=== PATIENT | male | born 1975 | race Caucasian/White ===

== ENCOUNTER → 2016-06-20 | Outpatient (CLI) | payer BC ==
--- NOTE | 2016-06-20 11:17 | ECHOF ---
Referral Reason:R7.89 chest pain MEASUREMENTS -------- HEIGHT: 157.5 cm WEIGHT: 958.9 kg BP: RVIDd: 2.8 cm (< 3.3) IVSd: 1.0 cm (0.6 - 1.1) LVIDd: 5.7 cm (3.9 - 5.3) LVPWd: 1.1 cm (0.6 - 1.1) IVSs: 1.6 cm LVIDs: 3.7 cm LVPWs: 1.5 cm LA Diam: 3.3 cm (2.7 - 3.8) Ao Diam: 3.4 cm (2.0 - 3.7) AV Cusp: 2.2 cm (1.5 - 2.6) LA Diam: 3.5 cm (2.7 - 3.8) MV EXCURSION: 23.948 mm (> 18.000) MV EF SLOPE: 138 mm/s (70 - 150) EPSS: 0.3 cm MV E Jalen: 0.52 m/s MV DecT: 256 ms MV A Jalen: 0.52 m/s MV E/A Ratio: 1.00 RAP: 5.00 mmHg RVSP: 19.13 mmHg FINDINGS -------- Sinus rhythm. This was a technically good study. There is borderline concentric left ventricular hypertrophy. Overall left ventricular systolic function is normal with, an EF between 55 - 60 %. The right ventricle is normal in size. The left atrial size is normal. The right atrial size is normal. There is mild aortic valve sclerosis. There is no evidence of aortic regurgitation. Mild mitral annular calcification present. Mild mitral regurgitation is present. Trace tricuspid regurgitation present. There is no evidence of pulmonary hypertension. The right ventricular systolic pressure, as measured by Doppler, is 19.13mmHg. There is no pulmonic regurgitation present. The aortic root size is normal. There is no pericardial effusion. CONCLUSIONS -------- 1. There is borderline concentric left ventricular hypertrophy. 2. Overall left ventricular systolic function is normal with, an EF between 55 - 60 %. 3. There is mild aortic valve sclerosis. 4. Mild mitral annular calcification present. 5. Mild mitral regurgitation is present. 6. Trace tricuspid regurgitation present. 7. There is no evidence of pulmonary hypertension. 8. The right ventricular systolic pressure, as measured by Doppler, is 19.13mmHg. HOME CARE GIVER: Erica Talamantes RDCS
== END | disposition home or self-care (01) ==
LOC: RADECHMAIN 08:30
PROVIDERS: ATTEND Family Medicine
DX: I35.8 Other nonrheumatic aortic valve disorders (principal); I34.0 Nonrheumatic mitral (valve) insufficiency
CPT/HCPCS: 93306

== ENCOUNTER 2016-11-13 08:38 | Emergency (ER) | payer BC, OTHER ==
[2016-11-13] MEDS ORDERED: SODIUM CHLORIDE 0.9% 1,000 ML IV STA (09:00)
--- NOTE | 2016-11-13 09:01 | ED ---
General Adult HPI - General Chief complaint: Abdominal Pain Stated complaint: Abd Pain Time Seen by Provider: 11/13/16 08:54 Source: patient, RN notes reviewed Mode of arrival: ambulatory Limitations: no limitations - History of Present Illness Initial comments: Patient will be 1-year-old male who presents emergency room today with a chief complaint of right-sided flank pain on and off over the last month. He does admit that he's noticed it more when he walks up steps was on his right leg that he feels this pain. States he was worried about his appendix. States his pain seems to be more often over the last 3 days. He states that he was at work this morning broke out into a sweat. He denies any other complaints or associated symptoms. Patient denies any recent fever, chills, shortness of breath, chest pain, nausea or vomiting, numbness or tingling, dysuria or hematuria, constipation or diarrhea, headaches or visual changes, or any other complaints. - Related Data Home Medications Medication Instructions Recorded Confirmed HYDROcodone/APAP 10-325MG [[place] 1 tab PO TID 12/24/15 11/13/16 10-325] Allergies Allergy/AdvReac Type Severity Reaction Status Date / Time No Known Allergies Allergy Verified 11/13/16 09:21 Review of Systems ROS Statement: Those systems with pertinent positive or pertinent negative responses have been documented in the HPI. ROS Other: All systems not noted in ROS Statement are negative. Past Medical History Additional Past Medical History / Comment(s): back pain History of Any Multi-Drug Resistant Organisms: None Reported Past Surgical History: Back Surgery Past Psychological History: No Psychological Hx Reported Smoking Status: Current every day smoker Past Alcohol Use History: Occasional Past Drug Use History: None Reported General Exam - General Exam Comments Initial Comments: General: The patient is awake and alert, in no distress, and does not appear acutely ill. Eye: Pupils are equal, round and reactive to light, extra-ocular movements are intact. No nystagmus. There is normal conjunctiva bilaterally. No signs of icterus. Ears, nose, mouth and throat: There are moist mucous membranes and no oral lesions. Neck: The neck is supple, there is no tenderness or JVD. Cardiovascular: There is a regular rate and rhythm. No murmur, rub or gallop is appreciated. Respiratory: Lungs are clear to auscultation, respirations are non-labored, breath sounds are equal. No wheezes, stridor, rales, or rhonchi. Gastrointestinal: Soft, non-distended, non-tender abdomen without masses or organomegaly noted. There is no rebound or guarding present. No CVA tenderness. Bowel sounds are unremarkable. Musculoskeletal: Normal ROM, no tenderness. Strength 5/5. Sensation intact. Pulses equal bilaterally 2+. Neurological: A&O x 3. CN II-XII intact, There are no obvious motor or sensory deficits. Coordination appears grossly intact. Speech is normal. Skin: Skin is warm and dry and no rashes or lesions are noted. Psychiatric: Cooperative, appropriate mood & affect, normal judgment. Limitations: no limitations Course Vital Signs 11/13/16 08:50 Temperature 98.0 F Pulse Rate 76 Respiratory 18 Rate Blood Pressure 155/78 O2 Sat by Pulse 98 Oximetry Medical Decision Making - Medical Decision Making Patient reexamined at this time shows no signs of distress. Resting comfortably in the stretcher. His abdomen is soft nontender. His labs been reviewed. His lipase 312. Remaining labs are within normal limits. Patient does have an appointment with his family doctor today in less than an hour. He does admit that it was worse when he was going downstairs also admits that today he has a physical job was going down a ladder when the pain seemed to get worse. Was discussed with patient about possibility of this being muscular skeletal. His x-rays unremarkable. He'll be discharged home advised follow-up the family doctor for this appointment later today to advised return here to the emergency room symptoms increase or worsen or for new concerns. Patient states understanding and is in agreement with the plan. - Lab Data Result diagrams: 11/13/16 09:15 11/13/16 09:15 Lab Results 11/13/16 11/13/16 11/13/16 Range/Units 09:15 09:15 09:15 WBC 9.0 (3.8-10.6) k/uL RBC 4.74 (4.30-5.90) m/uL Hgb 14.9 (13.0-17.5) gm/dL Hct 44.5 (39.0-53.0) % MCV 93.8 (80.0-100.0) fL MCH 31.4 (25.0-35.0) pg MCHC 33.4 (31.0-37.0) g/dL RDW 13.9 (11.5-15.5) % Plt Count 206 (150-450) k/uL Neutrophils % 64 % Lymphocytes % 29 % Monocytes % 3 % Eosinophils % 1 % Basophils % 0 % Neutrophils # 5.8 (1.3-7.7) k/uL Lymphocytes # 2.7 (1.0-4.8) k/uL Monocytes # 0.3 (0-1.0) k/uL Eosinophils # 0.1 (0-0.7) k/uL Basophils # 0.0 (0-0.2) k/uL Sodium 140 (137-145) mmol/L Potassium 4.6 (3.5-5.1) mmol/L Chloride 107 (98-107) mmol/L Carbon Dioxide 23 (22-30) mmol/L Anion Gap 10 mmol/L BUN 15 (9-20) mg/dL Creatinine 0.81 (0.66-1.25) mg/dL Est GFR (MDRD) Af Amer >60 (>60 ml/min/1.73 sqM) Est GFR (MDRD) Non-Af >60 (>60 ml/min/1.73 sqM) Glucose 88 (74-99) mg/dL Calcium 9.6 (8.4-10.2) mg/dL Total Bilirubin 0.4 (0.2-1.3) mg/dL AST 35 (17-59) U/L ALT 60 (21-72) U/L Alkaline Phosphatase 52 (38-126) U/L Total Protein 7.5 (6.3-8.2) g/dL Albumin 4.7 (3.5-5.0) g/dL Amylase 87 (30-110) U/L Lipase 312 H (23-300) U/L Urine Color Yellow Urine Appearance Clear (Clear) Urine pH 5.5 (5.0-8.0) Ur Specific Geraldine 1.012 (1.001-1.035) Urine Protein Negative (Negative) Urine Glucose (UA) Negative (Negative) Urine Ketones Negative (Negative) Urine Blood Negative (Negative) Urine Nitrite Negative (Negative) Urine Bilirubin Negative (Negative) Urine Urobilinogen <2.0 (<2.0) mg/dL Ur Leukocyte Esterase Negative (Negative) Disposition Clinical Impression: Abdominal pain Disposition: HOME SELF-CARE Condition: Good Instructions: Abdominal Pain (ED) Additional Instructions: Please follow-up with family doctor with scheduled appointment later today. Please return to emergency room if the symptoms increase or worsen or for any other concerns. Referrals: Deandre Anaya MD [Primary Care Provider] - 1-2 days Time of Disposition: 10:20
--- NOTE | 2016-11-13 09:31 | XR ---
EXAMINATION TYPE: XR KUB DATE OF EXAM: 11/13/2016 COMPARISON: NONE HISTORY: Pain TECHNIQUE: Single supine KUB image of the abdomen is obtained FINDINGS: Small bowel demonstrates no evidence for dilatation or air fluid levels. Gas and fecal material is seen in non-distended colon. No convincing evidence for pneumoperitoneum. No unusual calcifications. The lung bases are clear. The osseous structures are intact. Postoperative changes lumbar spine. IMPRESSION: 1. Overall nonobstructive bowel gas pattern.
[2016-11-13 09:32] LABS: Appearance,Urine Clear (Clear); Basophils % (A) 0 %; Bilirubin,Urine Negative (Negative); CH 32.4; CHCM 34.7; Eosinophils # (A) 0.1 k/uL (0-0.7); Eosinophils % (A) 1 %; Glucose,Urine (UA) Negative (Negative); HCT 44.5 % (39.0-53.0); HDW 2.29; HGB 14.9 gm/dL (13.0-17.5); Ketones,Urine Negative (Negative); Leukocyte Esterase,Urine Negative (Negative); Luc # (Auto) 0.14; Luc % (Auto) 2; Lymphocytes # (A) 2.7 k/uL (1.0-4.8); Lymphocytes % (A) 29 %; MCH 31.4 pg (25.0-35.0); MCHC 33.4 g/dL (31.0-37.0); MCV 93.8 fL (80.0-100.0); Mean Platelet Volume 7.7; Monocytes # (A) 0.3 k/uL (0-1.0); Monocytes % (A) 3 %; Neutrophils # (A) 5.8 k/uL (1.3-7.7); Neutrophils % (A) 64 %; Nitrite,Urine Negative (Negative); PH, Urine 5.5 (5.0-8.0); Protein,Urine Negative (Negative); RBC 4.74 m/uL (4.30-5.90); RDW 13.9 % (11.5-15.5); Specific Gravity,Urine 1.012 (1.001-1.035); UA Billing (MACRO vs. MICRO) CHEM; Urobilinogen,Urine <2.0 mg/dL (<2.0); WBC (Perox) 9.01
[2016-11-13 09:46] LABS: ALT 60 U/L (21-72); AST 35 U/L (17-59); Alkaline Phosphatase 52 U/L (38-126); Amylase 87 U/L (30-110); Anion Gap 10 mmol/L; Blood Urea Nitrogen 15 mg/dL (9-20); Calcium 9.6 mg/dL (8.4-10.2); Carbon Dioxide 23 mmol/L (22-30); Chloride 107 mmol/L (98-107); Glucose 88 mg/dL (74-99); Non-African American GFR(MDRD) >60 (>60 ml/min/1.73 sqM); Potassium 4.6 mmol/L (3.5-5.1); Sodium 140 mmol/L (137-145); Total Bilirubin 0.4 mg/dL (0.2-1.3); Total Protein 7.5 g/dL (6.3-8.2)
[2016-11-13 10:33] VITALS: BP 126/74; PULSE 16; RESP 65; TEMP 97.5
== END 2016-11-13 10:33 | disposition home or self-care (01) ==
LOC: EC 08:38
DX: R10.9 Unspecified abdominal pain (principal); F17.200 Nicotine dependence, unspecified, uncomplicated; Z79.891 Long term (current) use of opiate analgesic
CPT/HCPCS: 36415; 74000; 80053; 81003; 82150; 83690; 85025; 96360; 99284

== ENCOUNTER 2018-10-04 09:21 | Emergency (ER) | payer BC, OTHER ==
[2018-10-04 09:31] VITALS: BP 133/84; PULSE 92; RESP 18; TEMP 97.8
[2018-10-04] MEDS ORDERED: HYDROmorphone 1 MG/ML 1 ML SYRINGE IM STA (10:14)
[2018-10-04] MEDS ORDERED: KETOROLAC 60 MG/2 ML VIAL IM STA (10:14)
--- NOTE | 2018-10-04 11:00 | ED ---
General Adult HPI - General Chief complaint: Back Pain/Injury Stated complaint: BACK PAIN Time Seen by Provider: 10/04/18 09:30 Source: patient, RN notes reviewed Mode of arrival: ambulatory Limitations: no limitations - History of Present Illness Initial comments: This is a 43-year-old male who presents emergency Department with a past medical history of back surgeries 2. Patient states she's had chronic back problems for years. 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 Patient states he try to get into his primary medical care doctor but he is unable to see him for about a month. Patient denies any new numbness or weakness. Patient states she's on [place] 10/325 every 4 hours. Patient states has not been enough. Patient states he recently started some Motrin and it only helps a little. Patient denies any new injury or trauma patient denies any new area of pain he states it's the same area but worse. Patient states it's in the lower thoracic region and upper lumbar region. - Related Data Home Medications Medication Instructions Recorded Confirmed HYDROcodone/APAP 10-325MG [[place] 1 tab PO Q4H PRN 12/24/15 10/04/18 10-325] Allergies Allergy/AdvReac Type Severity Reaction Status Date / Time No Known Allergies Allergy Verified 10/04/18 09:37 Review of Systems ROS Statement: Those systems with pertinent positive or pertinent negative responses have been documented in the HPI. ROS Other: All systems not noted in ROS Statement are negative. Past Medical History Additional Past Medical History / Comment(s): back pain History of Any Multi-Drug Resistant Organisms: None Reported Past Surgical History: Back Surgery Past Psychological History: No Psychological Hx Reported Smoking Status: Current every day smoker Past Alcohol Use History: Occasional Past Drug Use History: None Reported General Exam - General Exam Comments Initial Comments: GENERAL: Patient is well-developed and well-nourished. Patient is nontoxic and well- hydrated and is in mild distress. ENT: Neck is soft and supple. No significant lymphadenopathy is noted. Oropharynx is clear. Moist mucous membranes. Neck has full range of motion without eliciting any pain. EYES: The sclera were anicteric and conjunctiva were pink and moist. Extraocular movements were intact and pupils were equal round and reactive to light. Eyelids were unremarkable. PULMONARY: Unlabored respirations. Good breath sounds bilaterally. No audible rales rhonchi or wheezing was noted. CARDIOVASCULAR: There is a regular rate and rhythm without any murmurs gallops or rubs. ABDOMEN: Soft and nontender with normal bowel sounds. SKIN: Skin is clear with no lesions or rashes and otherwise unremarkable. NEUROLOGIC: Patient is alert and oriented x3. Cranial nerves II through XII are grossly intact. Motor and sensory are also intact. Normal speech, volume and content. Symmetrical smile. MUSCULOSKELETAL: Normal extremities with adequate strength and full range of motion. Patient has tenderness to palpation in the paraspinous muscles. LYMPHATICS: No significant lymphadenopathy is noted PSYCHIATRIC: Normal psychiatric evaluation. Limitations: no limitations Course Vital Signs 10/04/18 09:28 Temperature 97.8 F Pulse Rate 92 Respiratory 18 Rate Blood Pressure 133/84 O2 Sat by Pulse 98 Oximetry Disposition Clinical Impression: Chronic back pain Disposition: HOME SELF-CARE Instructions (If sedation given, give patient instructions): Chronic Back Pain (DC) Is patient prescribed a controlled substance at d/c from ED?: No Referrals: Deandre Anaya MD [Primary Care Provider] - 1-2 days Time of Disposition: 11:00
--- NOTE | 2018-10-04 11:06 | XR ---
EXAMINATION TYPE: XR lumbar spine 2 or 3V DATE OF EXAM: 10/04/2018 CLINICAL HISTORY: Back pain TECHNIQUE: Frontal and lateral of the lumbar spine are obtained. COMPARISON: 12/20/2004 FINDINGS: Postoperative change from L4 through S1 with pedicular screws, fixation rods, and intervert ebral disc spacers. Surgical absence of the posterior elements. Minimal degenerative change of the re mainder of the lumbar spine with small anterior osteophytes and facet arthropathy. Lumbar spine verte bral bodies maintain normal vertebral body heights and alignment. There are 5 lumbar type vertebral b odies identified. No acute fracture or lumbar spine is seen. The overlying soft tissue appears unrema rkable. IMPRESSION: No acute fracture or malalignment is seen in the lumbar spine. Mild degenerative changes of the lumbar spine. Postsurgical change of L4-S1.
--- NOTE | 2018-10-04 11:07 | XR ---
EXAMINATION TYPE: XR thoracic spine 2V DATE OF EXAM: 10/04/2018 CLINICAL HISTORY: Back pain TECHNIQUE: Frontal, lateral, and swimmer's view of thoracic spine are obtained. COMPARISON: None. FINDINGS: Thoracic spine show satisfactory alignment without evidence of acute fracture or dislocatio n. Small anterior aspirates are seen throughout the thoracic spine. Vertebral body heights and disc space heights are preserved. Visualized ribs are unremarkable. IMPRESSION: No acute fracture or malalignment is seen in the thoracic spine. Mild multilevel degener ative changes of the thoracic spine.
== END 2018-10-04 11:16 | disposition home or self-care (01) ==
LOC: EC 09:21
DX: M54.6 Pain in thoracic spine (principal); M54.5 Low back pain; G89.29 Other chronic pain; F17.200 Nicotine dependence, unspecified, uncomplicated; Z98.890 Other specified postprocedural states
CPT/HCPCS: 72070; 72100; 99283; 96372 ×2; J1885; J1170

== ENCOUNTER 2018-10-28 07:52 | Day surgery (SDC) | payer BC ==
[~2018-10-28 07:52] MED LIST: PREMYELOGRAM MEDICATION REVIEW 1 EACH MISC PO ONE
[2018-10-28] MEDS ORDERED: DIAZEPAM 5 MG TAB PO STA (08:37)
[2018-10-28] MEDS ORDERED: HYDROmorphone 1 MG/ML 1 ML SYRINGE IVP STA (09:39)
[2018-10-28] MEDS ORDERED: HYDROmorphone 0.5 MG/0.5 ML SYRINGE IVP STA (09:39)
[2018-10-28 10:01] VITALS: RESP 16
[2018-10-28 10:52] VITALS: TEMP 97.3
--- NOTE | 2018-10-28 11:57 | CT ---
EXAMINATION TYPE: CT thor lumbar spine w con DATE OF EXAM: 10/28/2018 COMPARISON: Thoracic and lumbar spine x-rays October 04, 2018. MRI lumbar spine April 28, 2012 HISTORY: Mid-and lower back pain, sciatica due to disc displacement per order. History of 5 prior jaspal geries last [address] DLP: 964 mGycm Automated exposure control for dose reduction was used. CONTRAST: Exam performed with intrathecal contrast, patient injected with 14 mL of Isovue M200. FINDINGS: Successful lumbar puncture and contrast injection identified. There is less than optimal thecal sac o pacification in the upper thoracic spinal canal. Thoracic spine shows satisfactory alignment with pos terior spur disc complex effacing anterior thecal sac at T9-T10 level sagittal image 26. No additiona l large disc herniation is present. There is suggestion of old "Hangman" type fractures involving the posterior spinous process C7 and T1 level sagittal image 24. Vertebral body heights and disc space h eights are maintained. No significant spurring is seen. No suspicious neural foraminal narrowing note d at any thoracic level. Conus medullaris shows normal termination at mid L1 level. 5 lumbar type vertebra redemonstrated. Pos terior interpedicular rods and screws transfix the bilateral L4-L5 levels. Artificial disc material L 4-L5 and L5-S1 levels is seen. Vertebral body heights and disc space heights above the L4 level are s atisfactory. There is small posterior disc herniation mildly effacing anterior thecal sac at L2-L3 le hermes confirms axial image 134. There is moderate broad disc bulge effacing anterior thecal sac at L3-L 4 level axial image 144. There is some transverse diameter narrowing at this level coronal image 19 w hich correlates with myelogram. Mild to moderate bilateral neural foraminal narrowing present at the L3-L4 level on sagittal and axial images. Postsurgical changes L4-S1 level shows satisfactory alignme nt. There are laminectomy defects and spinous process resection of L4 and L5 levels. Note is made lef t L4 screw is slightly more lateral in position versus other screws. Right L5 screw terminates near p osterior margin of the right common iliac vein axial image 161. Incidental partial visualization of low dense rounded lesions throughout both kidneys favoring simple thin-walled cyst. Normal-appearing appendix in the right lower quadrant is partially imaged. IMPRESSION: Postsurgical change L4-S1 level with satisfactory alignment. Small disc herniation T9-T10 level. Some degenerative changes mid lumbar spine most prominent at L3-L4 level as detailed above.
[2018-10-28 13:26] VITALS: BP 114/67; PULSE 65
--- NOTE | 2018-10-28 13:38 | FL ---
EXAMINATION TYPE: FL myelogram 2 or more regions DATE OF EXAM: 10/28/2018 COMPARISON: Thoracic and lumbar spine x-rays from October 04, 2018. HISTORY: Mid and low back pain. History of prior back surgeries. Findings: Procedure was explained to patient. Informed consent was obtained and all the patient's questions wer e answered. Overlying skin is cleansed with Betadine. Lidocaine is used as anesthetic into the skin and deeper ti ssue. The posterior L4 level was localized under fluoroscopy due to laminectomy defects and spinous p rocess resection. Note is made of artificial disc material L4-L5 and L5-S1 levels. Note is made of po sterior intrapedicular pedicular rods and screws transfixing L4-L5 levels bilaterally. Spinal needle was introduced into the thecal sac under fluoroscopic guidance and 14 mL's of Isovue-[address] myelography is to follow. This report is dictated separately. Radiographic image is saved to document successful contrast opacification of thoracic and lumbar spin al canal. There is note made of focal transverse spinal canal narrowing L3-L4 level by roughly 50% % relative to adjacent levels . Patient tolerated procedure well without any immediate complication. Vital signs monitored before dur ing and after procedure. Patient was kept within the hospital for nearly 4 hours after procedure and then discharged home in stable condition. IMPRESSION: Successful myelography thoracic and lumbar spinal canal.
== END 2018-10-28 14:38 | disposition home or self-care (01) ==
LOC: RADPROMAIN 07:52 → 1SOBS 10:02 → RADPROMAIN 14:38
PROVIDERS: ATTEND Hospitalist
DX: M51.24 Other intervertebral disc displacement, thoracic region (principal)
CPT/HCPCS: 62305; 72129; 72132; J2001; J1170; Q9966

== ENCOUNTER 2019-02-21 11:36 | Emergency (ER) | payer BC | END 2019-02-21 11:56 | disposition left against medical advice (07) | LOC: EC 11:36 | DX: S91.319A Laceration without foreign body, unspecified foot, initial encounter (principal); X58.XXXA Exposure to other specified factors, initial encounter | CPT/HCPCS: 99499 ==